=== PATIENT | female | born 1995 | race American Indian/Alaskan Native ===

== ENCOUNTER 2019-06-07 13:15 | Observation (INO) | payer MEDICAID ==
[2019-06-07] MEDS ORDERED: SODIUM CHLORIDE 0.9% 1000 ML 2,000 ML IV ONE (13:36)
--- NOTE | 2019-06-07 13:38 | Event Note ---
Date: 06/07/19 Medical screening note: 24-year-old female brought to the hospital by emergency medical services for lower abdominal cramping, vaginal bleeding, lightheadedness, almost passing out. Patient is not sure if she is . EMS verbal he reports that patient is hypotensive in the field, this improved with IV fluids. Patient is awake and alert, protecting her airway, not hypoxic, does not have any significant respiratory distress, and is moving 4 extremities spontaneously. Check basic laboratory studies, EKG, pelvic ultrasound, hcg , placed on chief service dispatcher, give IV fluids, and reassess.\ Vital Signs 06/07/19 06/07/19 13:26 13:33 Temperature 98.4 F 98.4 F Pulse Rate 81 81 Respiratory 18 20 Rate Blood Pressure 113/49 Blood Pressure 113/49 [Left] O2 Sat by Pulse 98 98 Oximetry
[2019-06-07 14:03] LABS: Hematocrit 33.2 % (30.3-42.9); Hemoglobin 10.9 gm/dl (10.1-14.3); Mean Corpuscular HGB Conc 33 % (30-34); Mean Corpuscular Volume 94 fl (79-97); Platelet Count 171 K/mm3 (140-440); Red Blood Count 3.52 M/mm3 (3.65-5.03); Red Cell Distribution Width 13.2 % (13.2-15.2)
[2019-06-07 14:18] LABS: BUN/Creatinine Ratio 20; Blood Urea Nitrogen 8 mg/dL (7-17); Calcium 8.8 mg/dL (8.4-10.2); Hemolysis Index 5
[2019-06-07 14:27] LABS: INR 0.97 (0.87-1.13)
--- NOTE | 2019-06-07 14:34 | Emergency Department Report ---
ED Female HPI - General Chief complaint: Abdominal Pain Stated complaint: WEAKNESS/BP/VAG BLEEDING Time Seen by Provider: 06/07/19 14:31 Source: patient, EMS Mode of arrival: Stretcher Limitations: No Limitations - History of Present Illness Initial comments: Patient is a 24-year-old female that presents emergency room with complaints of heavy vaginal bleeding and passing clots. Patient states it started this morning at 5 AM. Patient states she went through 5 pads and is now wheezing and a T-shirt and she has soaks with seizure. Patient states she's had a miscarriage a year ago. Patient states she is a a 1. Patient states the pain as an 8 out of 10 in her abdomen. Patient states that the pain is so severe she had a near syncopal episode. Patient complains of weakness. Patient states the pain is better with rest and worse with movement. MD Complaint: vaginal bleeding -: Sudden Location: suprapubic Radiation: non-radiating Severity: severe Severity scale (0 -10): 8 Quality: cramping Consistency: constant Improves with: none Are you Now?: Yes Last Menstrual Period: 05/06/19 EDC: 02/10/20 Associated Symptoms: vaginal bleeding, abdominal pain. denies: nausea/vomiting, fever/chills, headaches, loss of appetite, dysuria, hematuria, rash - Related Data Sexually active: Yes : 5 Para: 3 A: 1 Allergies Allergy/AdvReac Type Severity Reaction Status Date / Time No Known Allergies Allergy Unverified 06/07/19 13:38 ED Review of Systems ROS: Stated complaint: WEAKNESS/BP/VAG BLEEDING Other details as noted in HPI Constitutional: denies: chills, fever Eyes: denies: eye pain, eye discharge, vision change ENT: denies: ear pain, throat pain Respiratory: denies: cough, shortness of breath, wheezing Cardiovascular: denies: chest pain, palpitations Endocrine: no symptoms reported Gastrointestinal: abdominal pain. denies: nausea, diarrhea Genitourinary: abnormal menses. denies: urgency, dysuria, discharge Musculoskeletal: denies: back pain, joint swelling, arthralgia Skin: denies: rash, lesions Neurological: denies: headache, weakness, paresthesias Psychiatric: denies: anxiety, depression Hematological/Lymphatic: denies: easy bleeding, easy bruising ED Past Medical Hx - Past Medical History Previous Medical History?: No - Surgical History Past Surgical History?: No - Family History Family history: no significant - Social History Smoking Status: Current Every Day Smoker Substance Use Type: None ED Physical Exam - General Limitations: No Limitations General appearance: alert, in no apparent distress - Head Head exam: Present: atraumatic, normocephalic - Eye Eye exam: Present: normal appearance - ENT ENT exam: Present: mucous membranes moist - Neck Neck exam: Present: normal inspection - Respiratory Respiratory exam: Present: normal lung sounds bilaterally. Absent: respiratory distress - Cardiovascular Cardiovascular Exam: Present: regular rate, normal rhythm. Absent: systolic murmur, diastolic murmur, rubs, gallop - GI/Abdominal GI/Abdominal exam: Present: soft, tenderness (suprapubic tenderness), normal bowel sounds - Extremities Exam Extremities exam: Present: normal inspection - Back Exam Back exam: Present: normal inspection - Neurological Exam Neurological exam: Present: alert, oriented X3 - Psychiatric Psychiatric exam: Present: normal affect, normal mood - Skin Skin exam: Present: warm, dry, intact, normal color. Absent: rash ED Course Vital Signs 06/07/19 06/07/19 06/07/19 13:26 13:33 19:13 Temperature 98.4 F 98.4 F Pulse Rate 81 81 74 Respiratory 18 20 17 Rate Blood Pressure 113/49 Blood Pressure 113/49 107/56 [Left] O2 Sat by Pulse 98 98 100 Oximetry 06/07/19 21:11 Temperature Pulse Rate 73 Respiratory 18 Rate Blood Pressure Blood Pressure 100/49 [Left] O2 Sat by Pulse 100 Oximetry - Reevaluation(s) Reevaluation #1: I discussed plan of care with patient. Discussed all results with patient. Patient states she does not feel comfortable going home since she feels so weak. 06/07/19 16:21 I discussed plan of care and admission with patient and patient agrees. Patient will be admitted to [facility] 06/07/19 16:28 Reevaluation #2: Patient became hypotensive. Patient will be given fluids. 06/07/19 16:45 - Consultations Consultation #1: Discussed case with Dr. Obregon. Dr. Obregon recommends methotrexate a single dose of 50 mg/m IM and follow-up with her in 2 days and discharged home with pain medications 06/07/19 16:14 I discussed the case again with Dr. Obregon and Dr. Reed agrees to admit the patient to [facility] for observation. 06/07/19 16:28 ED Medical Decision Making - Lab Data Result diagrams: 06/07/19 13:40 06/07/19 13:40 - EKG Data -: EKG Interpreted by Me EKG shows normal: sinus rhythm, axis, intervals, QRS complexes, ST-T waves Rate: normal - Radiology Data Radiology results: report reviewed ULTRASOUND OBSTETRIC INDICATION / CLINICAL INFORMATION: lower abd pain vaginal bleeding. Clinical Gestational Age (GA): Unknown TECHNIQUE: Transabdominal. Transvaginal COMPARISON: None available. FINDINGS: The uterus is mildly enlarged measuring 10.8 x 5.9 x 9.2 cm. Endometrium is mildly thickened measuring 13 mm. No evidence for gestational sac ADNEXA: The right ovary is well-visualized and has a normal sonographic appearance. We are able to identify the left ovary. No obvious left adnexal mass. FREE FLUID: None. ADDITIONAL FINDINGS: There is a heterogeneous masslike area in the posterior cul-de-sac measuring 6.5 x 8.4 x 7.8 cm. This is nonspecific. IMPRESSION: 1. No evidence of intrauterine /gestational sac at this time. 2. Masslike area within the posterior cul-de-sac measuring approximately 8 cm of uncertain significance. This could represent focal area of hemorrhage/hematoma. Ectopic cannot be excluded. Close clinical correlation and follow-up is recommended. - Medical Decision Making Patient is a 24-year-old [facility] emergency room with complaints of abdominal pain, vaginal bleeding and . Patient had a positive home test. Patient's LMP April. Patient had an ultrasound which shows a empty uterus and findings consistent with a possible ectopic . I counseled to MARKETING EFFECTIVENESS MANAGER, Dr. Obregon and she recommends discharge, methotrexate and pain meds however when I discussed this plan of care with the patient and patient was not comfortable with going home and asked to be admitted. I then discussed this with Dr. Obregon and she agreed to admit the patient to observation. Patient was given methotrexate, pain medications and fluids in the ER. Patient became hypotensive briefly in the ER and they fluids improved her blood pressure. Patient's blood pressure improved after minimal fluids. Patient labs unremarkable except for positive hCG. - Differential Diagnosis ectopic , preg, vaginal bleeding, threatened miscarriage, abd pain Critical Care Time: Yes Critical care time in (mins) excluding proc time.: 35 Critical care attestation.: If time is entered above; I have spent that time in minutes in the direct care of this critically ill patient, excluding procedure time. Critical Care Time: 35 minutes ED Disposition Clinical Impression: Weakness, Vaginal bleeding Abdominal pain Qualifiers: Abdominal location: lower abdomen, unspecified Qualified Code(s): R10.30 - Lower abdominal pain, unspecified Ectopic Qualifiers: Location of ectopic : other location Intrauterine status: without intrauterine Qualified Code(s): O00.80 - Other ectopic pregna ncy without intrauterine Hypotension Qualifiers: Hypotension type: unspecified hypotension type Qualified Code(s): I95.9 - Hypotension, unspecified Disposition: DC-09 OP ADMIT IP TO THIS HOSP Is pt being admited?: Yes Does the pt Need Aspirin: No Condition: Critical Time of Disposition: 16:29
--- NOTE | 2019-06-07 15:55 | Ultrasound Report ---
ULTRASOUND OBSTETRIC INDICATION / CLINICAL INFORMATION: lower abd pain vaginal bleeding. Clinical Gestational Age (GA): Unknown TECHNIQUE: Transabdominal. Transvaginal COMPARISON: None available. FINDINGS: The uterus is mildly enlarged measuring 10.8 x 5.9 x 9.2 cm. Endometrium is mildly thickened measurin g 13 mm. No evidence for gestational sac ADNEXA: The right ovary is well-visualized and has a normal sonographic appearance. We are able to id entify the left ovary. No obvious left adnexal mass. FREE FLUID: None. ADDITIONAL FINDINGS: There is a heterogeneous masslike area in the posterior cul-de-sac measuring 6.5 x 8.4 x 7.8 cm. This is nonspecific. IMPRESSION: 1. No evidence of intrauterine /gestational sac at this time. 2. Masslike area within the posterior cul-de-sac measuring approximately 8 cm of uncertain significan ce. This could represent focal area of hemorrhage/hematoma. Ectopic cannot be excluded. Close clinica l correlation and follow-up is recommended. CRITICAL RESULT: Time of Discovery: 1445 hours LOT ATTENDANT Time of Communication: 1450 hours LOT ATTENDANT Licensed Practitioner Receiving Report: Dr. Walker Read Back Performed: Yes. Signer Name: Devora Muñoz MD Signed: 06/07/2019 3:51 PM Workstation Name: [email or web address]
--- NOTE | 2019-06-07 15:55 | Ultrasound Report ---
ULTRASOUND OBSTETRIC INDICATION / CLINICAL INFORMATION: lower abd pain vaginal bleeding. Clinical Gestational Age (GA): Unknown TECHNIQUE: Transabdominal. Transvaginal COMPARISON: None available. FINDINGS: The uterus is mildly enlarged measuring 10.8 x 5.9 x 9.2 cm. Endometrium is mildly thickened measurin g 13 mm. No evidence for gestational sac ADNEXA: The right ovary is well-visualized and has a normal sonographic appearance. We are able to id entify the left ovary. No obvious left adnexal mass. FREE FLUID: None. ADDITIONAL FINDINGS: There is a heterogeneous masslike area in the posterior cul-de-sac measuring 6.5 x 8.4 x 7.8 cm. This is nonspecific. IMPRESSION: 1. No evidence of intrauterine /gestational sac at this time. 2. Masslike area within the posterior cul-de-sac measuring approximately 8 cm of uncertain significan ce. This could represent focal area of hemorrhage/hematoma. Ectopic cannot be excluded. Close clinica l correlation and follow-up is recommended. CRITICAL RESULT: Time of Discovery: 1445 hours TIME STUDY ENGINEER Time of Communication: 1450 hours TIME STUDY ENGINEER Licensed Practitioner Receiving Report: Dr. Walker Read Back Performed: Yes. Signer Name: Devora Muñoz MD Signed: 06/07/2019 3:51 PM Workstation Name: [employer]
[2019-06-07] MEDS ORDERED: SODIUM CHLORIDE 0.9% 1000 ML 1,000 ML IV ONE (16:29)
[2019-06-07] MEDS ORDERED: HYDROmorphone 1 MG/1 ML INJ IV ONE (16:29)
--- NOTE | 2019-06-07 21:33 | History and Physical Report ---
History of Present Illness Date of examination: 06/07/19 Date of admission: 06/07/19 20:46 Chief complaint: vaginal bleeding and abdominal pain ectopic History of present illness: 24yo , uncertain LNMP with acute onset abdominal pain and vaginal ble eding today. +ve weakness and fatigue. no nasuea, vomiting or systemic symtoms. Patient had US done in ED: no IUP, no adnexal masses, +ve 8cm hematoma in posterior cul de sac. BHCG 669.9 Hb 10.9 [facility] per [facility] Past History Past Medical History: no pertinent history Past Surgical History: no surgical history Social history: no significant social history Medications and Allergies Allergies Allergy/AdvReac Type Severity Reaction Status Date / Time No Known Allergies Allergy Unverified 06/07/19 13:38 Active Meds: Active Medications Hydromorphone HCl (Dilaudid) 2 mg IV Q3H [place] Sodium Chloride (Nacl 0.9% 1000 Ml) 1,000 mls @ 125 mls/hr IV DIRECT [place] Oxycodone/Acetaminophen (Percocet 5/325) 2 tab PO Q6H PRN PRN Reason: Pain, Moderate (4-6) - Vital Signs Vital signs: Vital Signs Temp Pulse Resp BP Pulse Ox 98.4 F 81 18 113/49 98 06/07/19 13:26 06/07/19 13:26 06/07/19 13:26 06/07/19 13:26 06/07/19 13:26 Temp Pulse Resp BP Pulse Ox 98.4 F 73 18 100/49 100 06/07/19 13:33 06/07/19 21:11 06/07/19 21:11 06/07/19 21:11 06/07/19 21:11 - Physical Exam Cardiovascular: Regular rate Lungs: Positive: Clear to auscultation Abdomen: Positive: normal appearance, soft, tenderness (mild suprapubic tenderness (exam done in ED by ED MD); no evidence of acute abdomen) Extremities: Positive: normal Deep Tendon Reflex Grade: Normal +2 Results Result Diagrams: 06/07/19 13:40 06/07/19 13:40 Abnormal lab results 06/07/19 06/07/19 06/07/19 Range/Units 13:40 13:40 13:40 RBC 3.52 L (3.65-5.03) M/mm3 Carbon Dioxide 21 L (22-30) mmol/L Creatinine 0.4 L (0.7-1.2) mg/dL HCG, Quant 669.9 H (0-4) mIU/mL All other labs normal. Ultrasound: report reviewed, image reviewed Assessment and Plan ectopic in hemodynamically stable female vs rupture corpus luteum US: no obvious mass in adnexa Plan for metherginex1 dose per protocol repeat cbc in AM serial vital signs pain meds PRN close monitoring, admitted for observation If stable in the morning plan for discharge to home with repeat BHCG on day #4 and day #7 to monitor response to methotrexte Minda ZELAYA
[2019-06-07] MEDS ORDERED: HYDROmorphone 1 MG/1 ML INJ IV PRN (22:00)
[2019-06-07] MEDS: SODIUM CHLORIDE 0.9% 1000 ML 1,000 ML IV SCH (23:43)
[2019-06-08 05:58] LABS: Basophils % (Auto) 0.5 % (0.0-1.8); Eosinophils # (Auto) 0.1 K/mm3 (0.0-0.4); Eosinophils % (Auto) 1.1 % (0.0-4.3); Hematocrit 22.2 % (30.3-42.9); Hemoglobin 7.4 gm/dl (10.1-14.3); Lymphocytes % (Auto) 20.8 % (13.4-35.0); Mean Corpuscular HGB Conc 33 % (30-34); Mean Corpuscular Volume 94 fl (79-97); Monocytes # (Auto) 0.6 K/mm3 (0.0-0.8); Platelet Count 132 K/mm3 (140-440); Red Blood Count 2.37 M/mm3 (3.65-5.03); Red Cell Distribution Width 12.8 % (13.2-15.2)
[2019-06-08] MEDS ORDERED: SODIUM CHLORIDE 0.9% 500 ML 500 ML IV ONE (06:21)
[2019-06-08] MEDS ORDERED: diphenhydrAMINE 25 MG CAP PO PRN (06:22)
[2019-06-08] MEDS ORDERED: ACETAMINOPHEN 325 MG TAB PO PRN (06:22)
[2019-06-08] MEDS: SODIUM CHLORIDE 0.9% 1000 ML 1,000 ML IV SCH (06:45)
[2019-06-08 09:29] LABS: Hematocrit 21.7 % (30.3-42.9); Hemoglobin 7.2 gm/dl (10.1-14.3)
--- NOTE | 2019-06-08 09:34 | Event Note ---
Date: 06/08/19 PT had a Hgn of 10.9 yesterday afternoon and was given methotrexate after U/S showed an 8cm finding in the posterior cul de sac, possibly a hematoma. PT is hemodynamically stable. No current lightheadedness or dizziness. Pt though noted that since HGN was drawn yesterday, that she has had heavy VB and passed several clots including a large one that, per pt, looked like it had tissue in it. Hgn this am was 7.4. Vitals: see charting Exam- Gen- NAD Abd-S/NT, nonsurgical abd. VE- cervix was atleast 2 cm dilated with palpable protruding POCs palpated. Uterus was nontender. Posterior cul de sac mass on U/S not appreciated A/P : Pt with U/S finding of 8 cm ?blood collection in the post cul de sac and had a drop in Hgn since yesterday but is hemodynamically stable and had heavy VB and has protruding tissue out of the cervix. PT had just started get a unit of PRBCs when I saw pt sow I stopped it for a moment so a H/H and repeat BHCG could be done to make sure H/H is not dropping quickly. Options d/w pt at length and she is adamantly against surgery at this time. She understands the potential risks of internal bleeding. Will check the repeat labs and also repeat an U/S today, la nena in light of her story of VB and findings on pelvic exam.
[2019-06-08] MEDS: oxyCODONE /ACETAMINOPHEN 5-325MG TAB PO PRN ×3 (09:56→22:48)
--- NOTE | 2019-06-08 18:37 | Ultrasound Report ---
ULTRASOUND PELVIS INDICATION: f/u possible ectopic from yesterdays U/S. TECHNIQUE: Transabdominal and Transvaginal. Duplex Color Doppler used: Yes. COMPARISON: Pelvic ultrasound 06/07/2019 FINDINGS: Uterus: Present. Size: 9.6 x 5.8 x 6.0 cm. Endometrial complex: Markedly thickened and heterogeneous measuring 3.3 cm transversely mm. Mass lesions: None Additional findings: None. Right Ovary -- Normal. Measures 2.5 x 1.3 x 2.1 Blood flow: Normal. Cyst or mass: None. Left Ovary-- Normal. Measures 3.0 x 1.5 x 1.9 Blood flow: Normal. Cyst or mass: None. Urinary Bladder: Normal. Free Fluid: None. Additional Findings: None. IMPRESSION: 1. Thickened heterogeneous endometrial stripe characteristic for probable miscarriage. No IUP or defi nite sonographic evidence for retained products of conception 2. No visualized ectopic Signer Name: Nagi Lopez MD Signed: 06/08/2019 6:32 PM Workstation Name: [id number]
[2019-06-08 20:56] LABS: Hematocrit 30.8 % (30.3-42.9); Hemoglobin 10.4 gm/dl (10.1-14.3)
--- NOTE | 2019-06-08 21:24 | Event Note ---
Date: 06/08/19 Repeat Hgn after PRBCs in 10.4. Pt with minimal VB today since I saw her this am. No abd pain. U/S was repeated and the 8 cm collection in the post cul de sac no longer noted. PT's BHCG also dropped from 669 to 274. PT chooses option to go home. VB precautions d/w pt. F/U in 1 week. Ectopic no longer suspected. Most likely SAB.
[2019-06-09 00:34] VITALS: BP 104/74
== END 2019-06-09 00:30 | disposition home or self-care (01) ==
LOC: ED 13:15 → OB 20:46
PROVIDERS: ADMIT Obstetrics & Gynecology; ATTEND Obstetrics & Gynecology
DX: O00.90 Unspecified ectopic pregnancy without intrauterine pregnancy (principal); O46.91 Antepartum hemorrhage, unspecified, first trimester; I95.9 Hypotension, unspecified; F17.200 Nicotine dependence, unspecified, uncomplicated; Z3A.01 Less than 8 weeks gestation of pregnancy
CPT/HCPCS: 36415; 36430; 76801; 76817; 76830; 76856; 80048; 82550; 83735; 84443; 84702; 85014; 85018; 85025; 85027; 85610; 86850; 86900; 86901; 86920; 93005; 93010; 96361; 96372; 96374; 99291; G0378; J1170; J7030; J9260; P9016